=== PATIENT | female | born 1945 | race Caucasian/White ===

== ENCOUNTER 2022-07-31 16:39 | Inpatient (IN) | payer BC, MEDICARE, OTHER ==
[~2022-07-31] VITALS: Ht 167.6 cm; Wt 69.9 kg
[2022-07-31 17:44] LABS: BASOPHILS ABSOLUTE AUTO 0.04 K/mm3 (0.00-0.23); BASOPHILS PERCENT AUTO 1 % (0-2); EOSINOPHILS ABSOLUTE AUTO 0.02 K/mm3 (0.00-0.68); EOSINOPHILS PERCENT AUTO 0 % (0-6); Hematocrit 37.2 % (33.0-51.0); Hemoglobin 12.1 g/dL (11.5-16.0); IMMATURE GRAN ABSOLUTE AUTO 0.02 K/mm3 (0.00-0.10); IMMATURE GRAN PERCENT AUTO 0 % (0-1); LYMPHOCYTES ABSOLUTE AUTO 1.13 K/mm3 (0.84-5.20); LYMPHOCYTES PERCENT AUTO 16 % (21-46); MONOCYTES ABSOLUTE AUTO 0.58 K/mm3 (0.16-1.47); MONOCYTES PERCENT AUTO 8 % (4-13); Mean Corpuscular HGB 30.3 pg (26.0-34.0); Mean Corpuscular HGB Conc 32.5 g/dL (31.5-36.5); Mean Corpuscular Volume 93 fL (80-100); Mean Platelet Volume 10.9 fL (9.1-12.4); NEUTROPHILS ABSOLUTE AUTO 5.32 K/mm3 (1.96-9.15); NEUTROPHILS PERCENT AUTO 75 % (41-73); Platelet Count 117 K/mm3 (150-400); RDW Coefficient Variation 14.1 % (11.7-14.2); RDW Standard Deviation 47.9 fL (35.1-46.3); Red Blood Cell Count 3.99 M/mm3 (3.80-5.20); White Blood Cell Count 7.11 K/mm3 (4.00-11.30)
[2022-07-31] MEDS ORDERED: Prinivil10 MG (18:05)
[2022-07-31 18:08] LABS: Albumin, Blood 3.6 g/dL (3.4-5.0); Albumin/Globulin Ratio 1.2 (0.8-1.8); Bilirubin, Total 1.4 mg/dL (0.1-1.0); Bun/Creatinine Ratio 15.6 (12.0-20.0); Calcium, Blood 10.3 mg/dL (8.5-10.1); Creatinine, Blood 1.73 mg/dL (0.40-1.00); Potassium, Blood 3.6 mmol/L (3.5-5.5); Total Protein, Blood 6.6 g/dL (6.4-8.2)
[2022-07-31 18:22] LABS: Creatine Kinase MB 13.9 ng/mL (0.0-3.6); Creatine Kinase MB Index 1.5 (0.0-4.0)
[2022-07-31 20:42] LABS: International Normalized Ratio 1.12; Prothrombin Time Results 11.7 Sec (9.7-11.5)
--- NOTE | 2022-07-31 22:10 | NUR ---
THIS AUTHOR ASSUMED PATIENT CARES UPON HER ARRIVAL TO UNIT AT 2114. MILD R-SIDED DEFICIT, DROOP NOTED. DENIES PAIN OR NEW PARESTHESIAS. PT IS ORIENTED BUT FORGETFUL AND NOT THE BEST HISTORIAN. SISTER AND DAUGHTER ARE HERE; DAUGHTER WILL BE BOARDING IN ROOM OVERNIGHT SHE LIVES IN [place]. VSS, HYPERTENSIVE.
[2022-08-01 04:03] LABS: BASOPHILS ABSOLUTE AUTO 0.04 K/mm3 (0.00-0.23); BASOPHILS PERCENT AUTO 1 % (0-2); EOSINOPHILS ABSOLUTE AUTO 0.03 K/mm3 (0.00-0.68); EOSINOPHILS PERCENT AUTO 0 % (0-6); Hematocrit 36.9 % (33.0-51.0); IMMATURE GRAN ABSOLUTE AUTO 0.02 K/mm3 (0.00-0.10); IMMATURE GRAN PERCENT AUTO 0 % (0-1); LYMPHOCYTES ABSOLUTE AUTO 0.94 K/mm3 (0.84-5.20); LYMPHOCYTES PERCENT AUTO 13 % (21-46); MONOCYTES ABSOLUTE AUTO 0.64 K/mm3 (0.16-1.47); MONOCYTES PERCENT AUTO 9 % (4-13); Mean Corpuscular HGB 30.2 pg (26.0-34.0); Mean Corpuscular HGB Conc 32.5 g/dL (31.5-36.5); Mean Corpuscular Volume 93 fL (80-100); Mean Platelet Volume 10.6 fL (9.1-12.4); NEUTROPHILS ABSOLUTE AUTO 5.43 K/mm3 (1.96-9.15); NEUTROPHILS PERCENT AUTO 77 % (41-73); Platelet Count 110 K/mm3 (150-400); RDW Coefficient Variation 13.8 % (11.7-14.2); RDW Standard Deviation 47.2 fL (35.1-46.3); Red Blood Cell Count 3.98 M/mm3 (3.80-5.20)
[2022-08-01 04:25] LABS: Alanine Aminotransfer (ALT/SGP 84 U/L (12-78); Albumin, Blood 3.3 g/dL (3.4-5.0); Albumin/Globulin Ratio 1.1 (0.8-1.8); Alk Phos 43 U/L (50-136); Anion Gap 9 mmol/L (6-16); Aspartate Aminotrans (AST/SGOT 112 U/L (12-37); Bilirubin, Direct 0.4 mg/dL (0.0-0.3); Bilirubin, Total 1.4 mg/dL (0.1-1.0); Blood Urea Nitrogen 26 mg/dL (8-24); Bun/Creatinine Ratio 17.8 (12.0-20.0); CO2, Blood 21 mmol/L (21-32); Calcium, Blood 9.7 mg/dL (8.5-10.1); Chloride, Blood 111 mmol/L (98-108); Creatinine, Blood 1.46 mg/dL (0.40-1.00); Globulin, Blood 2.9 g/dL (2.2-4.0); Glomerular Filtration Rate 37 (60-); Glucose, Blood 66 mg/dL (70-99); Phosphorus, Blood 2.2 mg/dL (2.5-4.9); Potassium, Blood 3.3 mmol/L (3.5-5.5); Sodium, Blood 141 mmol/L (136-145); Total Protein, Blood 6.2 g/dL (6.4-8.2)
--- NOTE | 2022-08-01 06:27 | NUR ---
SHIFT SUMMARY: please see assumption of care note from this author. No acute events overnight. Daughter has not returned as of not, but plans to. NEURO: patient is pleasant, oriented x3-4. She occasionally has trouble finding words, which makes assessment a bit difficult. She has a right-side deficit, but mild. More of a deficit in RLE than RUE. Denies pain or paresthesias. She is following commands and afebrile. CARDS: SR with PVCs. Rate in the 90s. BP has been high all shift; per ED nurse, target SBP 140-160. Pt on nicardipine gtt. No edema noted. Just after 0630, monitor alarmed for 13 beats of VT. RESP: on RA, SpO2 >90%. LS clear. MSK/INTEG: moves all extremities to command. As noted, R weaker than L. Multiple bruises noted during skin assessment. Photos taken and placed in chart. Baseline uses 2 canes to ambulate. She has been bedrest since arriving. GI/: frequent urination into bedpan. Refused Garcia, refused purewick. She has been incontinent more than once, says she has never been incontinent before. Just prior to this note, patient does endorse potential UTI, saying she feels some burning with the frequency. Sample not sent; will pass along to day shift. ENDO: n/a
--- NOTE | 2022-08-01 07:30 | NUR ---
Assumed care. Report received from dayshift RN. Pt resting in bed, alert and oriented, on room air. Pt c/o pain in back/left side of head. VS stable at time of report, will continue to monitor.
[2022-08-01 09:08] LABS: Source, Urine Clean Catch
[2022-08-01 09:11] LABS: Appearance, Urine Clear (Clear); Bilirubin, Urine Neg (Neg); Blood, Urine 2+ (Neg); Color, Urine Yellow (P-Yellow); Glucose Qualitative, Urine Neg (Neg); Ketones, Urine 2+ (Neg); Leukocyte Esterase, Urine Neg (Neg); Nitrite, Urine Neg (Neg); Protein, Urine 2+ (Neg); Urobilinogen, Urine NORM (Normal); pH, Urine 6.5 (5.0-8.0)
[2022-08-01 09:56] LABS: Squamous Epithelial Cells Few /hpf (Few); White Blood Cells, Urine 0-2 /hpf (0-5)
[2022-08-01 09:57] LABS: Bacteria Few /hpf
--- NOTE | 2022-08-01 18:21 | NUR ---
Shift summary. Pt condition unchanged throughout shift. Pt evaluated by PT, OT and ST today, able to ambulate w/standby assist up to commode, into chair, and back to bed. Pt remains A&O, on room air. VS stable, BP in systolic 140-160 range. Nicardipine titrated off, oral BP meds started, see EMAR. Pt c/o constipation and pain from osteoarthritis in hips. Dr. Goncalves contacted, orders obtained for Mirilax and Ultram, see EMAR for details. No other acute changes this shift, see assessment. Will continue to monitor and report off to nightshift RN.
[2022-08-02 03:41] LABS: BASOPHILS ABSOLUTE AUTO 0.03 K/mm3 (0.00-0.23); BASOPHILS PERCENT AUTO 1 % (0-2); EOSINOPHILS PERCENT AUTO 2 % (0-6); Hematocrit 37.1 % (33.0-51.0); Hemoglobin 12.3 g/dL (11.5-16.0); IMMATURE GRAN ABSOLUTE AUTO 0.01 K/mm3 (0.00-0.10); IMMATURE GRAN PERCENT AUTO 0 % (0-1); LYMPHOCYTES PERCENT AUTO 21 % (21-46); MONOCYTES ABSOLUTE AUTO 0.81 K/mm3 (0.16-1.47); MONOCYTES PERCENT AUTO 13 % (4-13); Mean Corpuscular HGB 30.3 pg (26.0-34.0); Mean Corpuscular HGB Conc 33.2 g/dL (31.5-36.5); Mean Corpuscular Volume 91 fL (80-100); Mean Platelet Volume 10.6 fL (9.1-12.4); NEUTROPHILS ABSOLUTE AUTO 3.91 K/mm3 (1.96-9.15); NEUTROPHILS PERCENT AUTO 64 % (41-73); Platelet Count 120 K/mm3 (150-400); RDW Coefficient Variation 13.5 % (11.7-14.2); RDW Standard Deviation 46.1 fL (35.1-46.3); Red Blood Cell Count 4.06 M/mm3 (3.80-5.20); White Blood Cell Count 6.16 K/mm3 (4.00-11.30)
[2022-08-02 04:15] LABS: Albumin/Globulin Ratio 1.1 (0.8-1.8); Bun/Creatinine Ratio 17.5 (12.0-20.0); Calcium, Blood 9.4 mg/dL (8.5-10.1); Creatinine, Blood 1.6 mg/dL (0.40-1.00); Globulin, Blood 2.7 g/dL (2.2-4.0); Potassium, Blood 3.8 mmol/L (3.5-5.5); Total Protein, Blood 5.7 g/dL (6.4-8.2)
--- NOTE | 2022-08-02 04:59 | NUR ---
END OF SHIFT NOTE PATIENT MOVED TO [facility] AT 0500. NEURO: ALERT AND ORIENTED X4. DELAYED SPEECH. PT DENIES NUMBNESS/TINGLING, HEADACHE OR VISION CHANGES. RIGHT SIDED FACIAL DROOP WITH SMILE. RIGHT SIDED WEAKNESS. RUE DEFICIT NOTED WITH STRENGTH I.E. PUSHING AND SQUEEZING. NO DRIFT NOTED AND OVERCOMES GRAVITY. RLE OVERCOMES GRAVITY AND NO DRIFT NOTED. RLE WEAKER THAN LLE. PUPILS 3MM PERRLA. PERIPHERAL VISION INTACT. GROSS AND FINE SENSATION INTACT CARDIAC: NSR. HR 60s-70s. SBP < 160. PT DENIES CHEST PAIN RESPIRATORY: RA. PT SATTING >95%. PT DENIES SOB/DYSPNEA. BREATH SOUNDS CLEAR THROUGH OUT. GI/: PT STAND AND PIVOT TO BEDSIDE COMMODE INTEGUMENTARY:INTACT
--- NOTE | 2022-08-02 15:44 | NUR ---
PATIENT CAME UP FROM ICU AROUND 1530. 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 RIGHT LE SHORTER THAN LEFT BUT PATIENT STATES NOT NEW-DUE TO ARTHRITIS. PATIENT DENIES PAIN. BP IS SYSTOLIC 160, AND 167, WILL CALL PROVIDER. SPEECH IS CLEAR. FACIAL DROOP PRESENT AT LIP. BRUISING ON RIGHT UPPER BACK AND LEFT LE PRESENT FROM GROUND LEVEL AT HOME FALL. DAUGHTER IS WITH PATIENT.
--- NOTE | 2022-08-02 17:02 | NUR ---
PATIENT PRESSURE REMAINS 164/104 20 MINUTES AFTER HYDRALAZINE GIVEN. SHE IS LYING ON BED WITH NO COMPLAINTS EXCEPT FOR HER TELEMETRY. SHE IS ASKING IF TELE CAN BE STOPPED, BECASUE IT IS BOTHERING HER EHS (ELECTROMAGNETIC SENSATIVIEY). EXPLANATION OF CARDIAC MONITORING PROVIDED TO PATIENT AND SHE IS UNDERSTANDING OF IT AT THIS TIME.
--- NOTE | 2022-08-02 18:29 | NUR ---
Patient was cussing at me pretty easy, when i touched her trying to get proper arm placement for a blood pressure.
[2022-08-03 05:13] LABS: BASOPHILS ABSOLUTE AUTO 0.02 K/mm3 (0.00-0.23); BASOPHILS PERCENT AUTO 0 % (0-2); EOSINOPHILS ABSOLUTE AUTO 0.05 K/mm3 (0.00-0.68); EOSINOPHILS PERCENT AUTO 1 % (0-6); Hematocrit 37.4 % (33.0-51.0); Hemoglobin 12.6 g/dL (11.5-16.0); IMMATURE GRAN ABSOLUTE AUTO 0.01 K/mm3 (0.00-0.10); IMMATURE GRAN PERCENT AUTO 0 % (0-1); LYMPHOCYTES ABSOLUTE AUTO 0.93 K/mm3 (0.84-5.20); LYMPHOCYTES PERCENT AUTO 17 % (21-46); MONOCYTES ABSOLUTE AUTO 0.62 K/mm3 (0.16-1.47); MONOCYTES PERCENT AUTO 11 % (4-13); Mean Corpuscular HGB 30.6 pg (26.0-34.0); Mean Corpuscular HGB Conc 33.7 g/dL (31.5-36.5); Mean Corpuscular Volume 91 fL (80-100); Mean Platelet Volume 10.6 fL (9.1-12.4); NEUTROPHILS PERCENT AUTO 71 % (41-73); Platelet Count 122 K/mm3 (150-400); RDW Coefficient Variation 13.6 % (11.7-14.2); RDW Standard Deviation 45.7 fL (35.1-46.3); Red Blood Cell Count 4.12 M/mm3 (3.80-5.20); White Blood Cell Count 5.53 K/mm3 (4.00-11.30)
[2022-08-03 05:56] LABS: Bun/Creatinine Ratio 19.4 (12.0-20.0); Calcium, Blood 9.8 mg/dL (8.5-10.1); Creatinine, Blood 1.8 mg/dL (0.40-1.00); Potassium, Blood 3.3 mmol/L (3.5-5.5)
--- NOTE | 2022-08-03 06:31 | NUR ---
SHIFT SUMMARY NOC PT A/O X 4. PT HAS SLIGHT R SIDE STRENGTH DEFICIT FROM HYPERTENSIVE HEMMORHAGE. PT HAS SLIGHT R SIDE FACIAL DROOP AND SLURRED SPEECH AT TIMES. PT USES CALL LIGHT APPROPRIATELY AND REQUIRES SBA WHEN MOVING TO [facility] [place]. PT HAD AN ELEVATED BP THAT MET PARAMETERS FOR GIVING IV LOPRESSOR AND BP WAS LOWERED TO ACCEPTABLE LEVEL. PT DID NOT REPORT ANY EPISODES OF ELECTROMAGNETIC HYPERSENSITIVITY DURING SHIFT. IV POLE WAS REMOVED FROM ROOM AND SEEMED TO PUT PT AT EASE. PT IS CURRENTLY RESTING IN BED WITH BED IN LOWEST POSITION, AND CALL LIGHT WITHIN REACH.
--- NOTE | 2022-08-03 12:07 | NUR ---
Pt resting comfortably in bed morning medications given. Pt states she didnt sleep to well overnight. Patient family is at bedside and asking to speak with physician. is at bedside speaks to family and, also calls nursing supervisor winter as well. Walks into room to give patient medication and pt states she wants to sign out AMA. She states Dr. Cisneros has told her all risk she understands and would like to go home. Pt signs AMA form, prescription meds are given. IV removed. Pt given a wheelchair to be escorted out. Pt leaves with family all belongings.
== END 2022-08-03 11:41 | disposition left against medical advice (07) | DRG 64 ==
LOC: ER 16:39 → ICUW 21:00 → ICUE 21:00 → ICUW 21:11 → ICUE 08-02 04:20 → MEDS 08-02 15:25
PROVIDERS: Internal Medicine; Physician Assistant; Student in an Organized Health Care Education/Training Program; ADMIT Family Medicine
DX: I61.9 Nontraumatic intracerebral hemorrhage, unspecified (principal); G93.6 Cerebral edema; G81.91 Hemiplegia, unspecified affecting right dominant side; R47.81 Slurred speech; E83.52 Hypercalcemia; D69.6 Thrombocytopenia, unspecified; R00.0 Tachycardia, unspecified; N18.32 Chronic kidney disease, stage 3b; R30.0 Dysuria
CPT/HCPCS: 36415; 70450; 80048; 80053; 81001; 82248; 82550; 82553; 83605; 83735; 84100; 85025; 85610; 92610; 93005; 93010; 96365; 96366; 96375; 97110; 97116; 97162; 97166; 97530; 99285-25; A9270; J7050

== ENCOUNTER → 2023-05-27 | Outpatient (CLI) | payer MEDICARE, OTHER ==
[~2023-05-27] MED LIST: 1/2 NS 250ml250 ML; AMLO5 PO; CATAPRES0.1 MG PO; CATAPRES0.2 M1 PO; DOCUZEN 8.6-501 EACH PO; Prinivil10 MG
[2023-05-27 10:59] LABS: Source, Urine Clean Catch
[2023-05-27 13:49] LABS: Appearance, Urine Clear (Clear); Bilirubin, Urine Neg (Neg); Blood, Urine 1+ (Neg); Color, Urine Yellow (P-Yellow); Glucose Qualitative, Urine Neg (Neg); Ketones, Urine Neg (Neg); Leukocyte Esterase, Urine 2+ (Neg); Nitrite, Urine Neg (Neg); Protein, Urine 3+ (Neg); Urobilinogen, Urine NORM (Normal)
[2023-05-27 14:11] LABS: Squamous Epithelial Cells Rare /hpf (Few)
[2023-05-27 14:14] LABS: Bacteria Few /hpf
== END | disposition home or self-care (01) ==
LOC: LAB 10:53 → LAB SHORT 10:53 → LAB FUT 05-25 10:50 → EDSTATUS 05-25 10:50
PROVIDERS: Family Medicine
DX: R30.0 Dysuria (principal)
CPT/HCPCS: 81001